=== PATIENT | male | born 1995 | race Hispanic/Latino ===

== ENCOUNTER 2021-06-13 16:46 | Emergency (ER) | payer SELFPAY ==
[~2021-06-13] VITALS: Ht 170.2 cm; Wt 90.7 kg
[2021-06-13 16:47] VITALS: BP 137/79
[2021-06-13] MEDS ORDERED: HYDROXYZINE 25 MG TABLET PO ONE (17:00)
[2021-06-13] MEDS ORDERED: HYDROXYZINE 10 MG TABLET ONE ×2 (17:06→17:07)
[2021-06-13] MEDS ORDERED: HYDR-3421 PO (17:08)
[2021-06-13] MEDS ORDERED: HYDROXYZINE 10 MG TABLET PO SCH (17:30)
== END 2021-06-13 17:29 | disposition home or self-care (01) ==
LOC: EDH 16:46
DX: F43.0 Acute stress reaction (principal); F41.1 Generalized anxiety disorder; R20.0 Anesthesia of skin

== ENCOUNTER 2021-08-24 22:54 | Emergency (ER) | payer OTHER ==
[~2021-08-24] VITALS: Ht 170.2 cm; Wt 93.0 kg
[~2021-08-24 22:54] MED LIST: HYDR-3421 PO
[2021-08-24] MEDS ORDERED: ONDANSETRON ODT 4MG TAB ONE (23:18)
[2021-08-24 23:21] VITALS: BP 123/62
[2021-08-24] MEDS ORDERED: ONDANSETRON ODT 4MG TAB SL ONE (23:30)
[2021-08-24] MEDS ORDERED: ONDANSETRON 4MG INJ IVP ONE (23:30)
== END 2021-08-24 23:31 | disposition home or self-care (01) ==
LOC: EDH 22:54
DX: F41.1 Generalized anxiety disorder (principal); F43.0 Acute stress reaction; F14.10 Cocaine abuse, uncomplicated; Z79.899 Other long term (current) drug therapy